=== PATIENT | female | born 1980 | race African-American/Black ===

== ENCOUNTER 2018-01-16 13:32 | Emergency (ER) | payer BC ==
[2018-01-16] MEDS: morphine 2 MG INJ IV (15:39)
[2018-01-16] MEDS: DEXAMETHASONE 10 MG/ML 1 ML INJ IV (15:39)
[2018-01-16] MEDS: ONDANSETRON 4 MG INJ IV (15:39)
[2018-01-16] MEDS: CEFAZOLIN 2 GM/50 ML (PMX) 50 ML IVPB (15:44)
[2018-01-16 15:48] LABS: ADD MAN DIFF? NO
[2018-01-16 15:50] LABS: BASOPHILS % 0.2 % (0.0-2.0); EOSINOPHILS % 0.2 % (0.0-7.0); HEMATOCRIT 41.1 % (37.0-47.0); HEMOGLOBIN 13.6 g/dl (12.0-16.0); MEAN CORPUSCULAR HEMOGLOBIN 28.4 pg (29.0-33.0); MEAN CORPUSCULAR HGB CONC 33.1 g/dl (32.0-37.0); MEAN CORPUSCULAR VOLUME 85.8 fl (82.0-101.0); MEAN PLATELET VOLUME 9.5 fl (7.4-10.4); MONOCYTE # 0.9 10^3/ul (0.3-0.9); MONOCYTES % 4.8 % (0.0-11.0); NEUTROPHIL # 14.9 10^3/ul (1.6-7.5); NEUTROPHILS % 83.2 % (39.0-77.0); PLATELET COUNT 368 10^3/UL (140-415); RED BLOOD COUNT 4.79 10^6/ul (4.20-5.40); RED CELL DISTRIBUTION WIDTH 12.6 % (11.5-14.5)
[2018-01-16] MEDS: HYDROmorphONE 0.5 MG/0.5 ML SYG IV (16:17)
[2018-01-16 16:19] LABS: ANION GAP 17 (8-16); BLOOD UREA NITROGEN 6 mg/dl (7-20); CARBON DIOXIDE 31 mmol/L (21-31); CHLORIDE 97 mmol/L (97-110); CREATININE 0.78 mg/dl (0.44-1.00); GLUCOSE 132 mg/dl (70-220); POTASSIUM 3.5 mmol/L (3.5-5.1); SODIUM 141 mmol/L (135-144)
[2018-01-16] MEDS: KETOROLAC 30 MG INJ IV (16:19)
[2018-01-16 17:26] LABS: URINE BLOOD (Dip) POC Negative (NEGATIVE); URINE GLUCOSE (Dip) POC Negative (NEGATIVE); URINE KETONES (Dip) POC 2+ (NEGATIVE); URINE LEUKOCYTE EST (Dip) POC Negative (NEGATIVE); URINE NITRITE (Dip) POC Negative (NEGATIVE); URINE TOTAL PROTEIN POC 2+ (NEGATIVE)
[2018-01-16 17:26] LABS: URINE PH (Dip) POC 6.5 (5.0-8.5)
[2018-01-16] MEDS: SOD CHLORIDE 0.9% 1,000 ML IV (17:49)
[2018-01-16] MEDS: SOD CHLORIDE 0.9% 100 ML (18:07)
[2018-01-16] MEDS: IOHEXOL 300MG/ML 150 ML BTL (18:07)
[2018-01-16] MEDS: LIDOCAINE 1% (MDV) 10 ML INJ INFIL (19:26)
== END 2018-01-16 20:15 | disposition home or self-care (01) ==
LOC: FTE 13:32
DX: J36 Peritonsillar abscess (principal); J45.909 Unspecified asthma, uncomplicated
CPT/HCPCS: 42700; 70491; 80048; 81003; 81025; 85025; 96361; 96365; 96375; 99285-25